=== PATIENT | female | born 1970 | race Two or more races ===

== ENCOUNTER 2021-05-10 20:47 | Emergency (ER) | payer OTHER ==
[~2021-05-10] VITALS: Ht 160 cm; Wt 74.1 kg
[2021-05-10 20:53] VITALS: BP 150/94
[2021-05-11] MEDS ORDERED: BENZ-16 PO (17:52)
[2021-05-11] MEDS ORDERED: AZIT250T PO (17:52)
[2021-05-11] MEDS ORDERED: ALBU6.7H9 INH (17:52)
== END 2021-05-10 21:41 | disposition home or self-care (01) ==
LOC: ER 20:48
DX: R05.9 Cough, unspecified (principal); Z20.822 Contact with and (suspected) exposure to COVID-19; R07.89 Other chest pain; F12.90 Cannabis use, unspecified, uncomplicated; Z88.8 Allergy status to other drugs, medicaments and biological substances
CPT/HCPCS: 71045; 93005; 99283

== ENCOUNTER 2021-05-11 15:13 | Emergency (ER) | payer OTHER ==
[~2021-05-11] VITALS: Ht 160 cm; Wt 74.1 kg
[2021-05-11 15:24] VITALS: BP 162/108
[2021-05-11] MEDS ORDERED: AZIT250T PO (17:52)
[2021-05-11] MEDS ORDERED: BENZ-16 PO (17:52)
[2021-05-11] MEDS ORDERED: ALBU6.7H9 INH (17:52)
== END 2021-05-11 18:06 | disposition home or self-care (01) ==
LOC: ER 15:13
DX: J20.9 Acute bronchitis, unspecified (principal); Z20.822 Contact with and (suspected) exposure to COVID-19; R06.02 Shortness of breath; R05.9 Cough, unspecified; F12.90 Cannabis use, unspecified, uncomplicated; Z88.8 Allergy status to other drugs, medicaments and biological substances; Z79.2 Long term (current) use of antibiotics; Z79.899 Other long term (current) drug therapy
CPT/HCPCS: 87635; 99283; C9803